=== PATIENT | female | born 1945 | race Caucasian/White ===

== ENCOUNTER 2016-08-09 08:01 | Emergency (ER) | payer MEDICARE, MEDICAID ==
[~2016-08-09] VITALS: Ht 162.5 cm; Wt 72.6 kg
[~2016-08-09 08:01] MED LIST: AMOXICILLIN500 M2 PO; AUGMENTIN 875 M1 TAB PO; AZITHROMYCIN250 MG; BACTRIM DS 8001 TA1 PO; CIPRODEX 0.3%-7.5 ML OT; CLARITIN10 MG PO; FLONASE 0.05% 121 EA NAS; LOMOCOT 0.025 M1 TAB PO; NKHM; PREDNISONE20 M1 PO; ROBITUSSIN AC 110 ML PO; ZITHROMAX Z PA250 MG PO; ZOFRAN ODT4 MG SL
[2016-08-09 09:32] LABS: BILIRUBIN 2+ (NEGATIVE); BLOOD 1+ (NEGATIVE); CLARITY CLOUDY (CLEAR); COLOR YELLOW (YELLOW); GLUCOSE NEGATIVE (NEGATIVE); KETONE 1+ (NEGATIVE); LEUKO ESTERASE NEGATIVE (NEGATIVE); NITRITE NEGATIVE (NEGATIVE); PH 5.5 (5.0-9.0); PROTEIN 1+ (NEGATIVE); SPECIFIC GRAVITY >= 1.030 (1.005-1.030)
[2016-08-09 09:36] LABS: BASO % 0.2 % (0.0-1.0); EOS % 0.1 % (1.0-4.0); HEMATOCRIT 39.2 % (37.0-47.0); HEMOGLOBIN 12.6 g/dl (12.0-16.0); LYMPH # 1.2 10*3/uL (1.3-4.4); MEAN CELL VOLUME 80.7 fl (81.0-99.0); MEAN CORPUSCULAR HGB 25.9 pg (27.0-31.0); MEAN CORPUSCULAR HGB CONC 32.1 g/dl (33.0-37.0); MEAN PLATELET VOLUME 9.5 fl (9.6-12.3); MONO # 0.8 10*3/uL (0.1-1.0); NEUT # 8.1 10*3/uL (2.3-7.9); NEUT % 79.3 % (47.0-73.0); PLATELET COUNT AUTOMATED 390 10*3/uL (130-400); RED BLOOD COUNT 4.86 10*6/uL (4.10-5.10); RED CELL DISTRI WIDTH 13.2 % (0-14.5); WHITE BLOOD COUNT 10.2 10*3/uL (4.8-10.8)
[2016-08-09 09:50] LABS: BACTERIA 3+; MUCOUS 2+; URINE REFLEX COMMENT YES (NO)
[2016-08-09 09:57] LABS: ALBUMIN 3.3 gm/dl (3.1-4.5); ALKALINE PHOSPHATASE 73 U/L (45-117); BILIRUBIN, DIRECT < 0.1 mg/dL (0.0-0.2); BILIRUBIN, TOTAL 0.4 mg/dl (0.2-1.0); BUN 14 mg/dl (7-24); CARBON DIOXIDE 25 mmol/L (21-32); CHLORIDE 105 mmol/L (98-107); EST GLOM FILT AFRICAN AMERICAN > 60 ml/min; GLUCOSE 104 mg/dL (65-99); MAGNESIUM 2.6 mg/dL (1.5-2.1); POTASSIUM 3.5 mmol/L (3.5-5.1); SGOT/AST 13 IU/L (3-35); SGPT/ALT 21 U/L (12-78); SODIUM 143 mmol/L (136-145); TOTAL PROTEIN 6.2 gm/dL (6.4-8.2)
[2016-08-09] MEDS ORDERED: REGLAN10 M1 PO (11:30)
[2016-08-23] MEDS ORDERED: LOPRESSOR25 MG PO (13:45)
== END 2016-08-09 12:05 | disposition home or self-care (01) ==
LOC: ED 08:01
PROVIDERS: Emergency Medicine
DX: R11.2 Nausea with vomiting, unspecified (principal); R10.9 Unspecified abdominal pain

== ENCOUNTER 2017-04-25 12:24 | Emergency (ER) | payer MEDICARE, MEDICAID ==
[~2017-04-25] VITALS: Ht 152.4 cm; Wt 65.8 kg
[~2017-04-25 12:24] MED LIST changes: +LOPRESSOR25 MG PO; +REGLAN10 M1 PO
[2017-04-25 13:03] LABS: BILIRUBIN NEGATIVE (NEGATIVE); BLOOD 3+ (NEGATIVE); CLARITY CLOUDY (CLEAR); COLOR RED (YELLOW); GLUCOSE NEGATIVE (NEGATIVE); KETONE NEGATIVE (NEGATIVE); NITRITE NEGATIVE (NEGATIVE); SPECIFIC GRAVITY 1.025 (1.005-1.030)
[2017-04-25 13:06] LABS: LEUKO ESTERASE TRACE (NEGATIVE)
[2017-04-25 13:09] LABS: RBC TNTC rbc/hpf (0-2)
[2017-04-25 14:03] LABS: BASO # 0.1 10*3/uL (0.0-0.1); BASO % 0.7 % (0.0-1.0); EOS # 0.2 10*3/uL (0.0-0.4); EOS % 1.6 % (1.0-4.0); HEMATOCRIT 39.6 % (37.0-47.0); HEMOGLOBIN 12.8 g/dl (12.0-16.0); LYMPH # 1.4 10*3/uL (1.3-4.4); LYMPH % 14.4 % (27.0-41.0); MEAN CELL VOLUME 86.3 fl (81.0-99.0); MEAN CORPUSCULAR HGB 27.9 pg (27.0-31.0); MEAN CORPUSCULAR HGB CONC 32.3 g/dl (33.0-37.0); MEAN PLATELET VOLUME 10.1 fl (9.6-12.3); MONO # 0.6 10*3/uL (0.1-1.0); MONO % 6.3 % (3.0-9.0); NEUT # 7.7 10*3/uL (2.3-7.9); NEUT % 76.6 % (47.0-73.0); PLATELET COUNT AUTOMATED 310 10*3/uL (130-400); RED BLOOD COUNT 4.59 10*6/uL (4.10-5.10)
[2017-04-25 14:17] LABS: ACT PARTIAL THROMBO TIME 25.8 SECONDS (20.8-31.5)
[2017-04-25 14:18] LABS: ALBUMIN 3.5 gm/dl (3.1-4.5); ALKALINE PHOSPHATASE 78 U/L (45-117); BUN 10 mg/dl (7-24); CHLORIDE 107 mmol/L (98-107); CREATININE 0.49 mg/dL (0.55-1.02); LIPASE 147 U/L (73-393); MAGNESIUM 2.5 mg/dL (1.5-2.1); POTASSIUM 4.2 mmol/L (3.5-5.1); SGOT/AST 29 IU/L (3-35); SGPT/ALT 12 U/L (12-78); SODIUM 142 mmol/L (136-145); TOTAL PROTEIN 6.6 gm/dL (6.4-8.2)
[2017-04-25 14:21] LABS: TROPONIN I < 0.015 ng/ml (<0.045)
[2017-04-25] MEDS ORDERED: CIPRO500 MG PO (15:41)
== END 2017-04-25 15:46 | disposition home or self-care (01) ==
LOC: ED 12:24
PROVIDERS: Emergency Medicine
DX: R31.9 Hematuria, unspecified (principal); I10 Essential (primary) hypertension; Z85.038 Personal history of other malignant neoplasm of large intestine

== ENCOUNTER → 2017-06-08 | Emergency (ER) | payer MEDICARE, MEDICAID ==
[~2017-06-08] VITALS: Ht 162.5 cm; Wt 61.2 kg
[~2017-06-08] MED LIST changes: +CIPRO500 MG PO
[2017-06-08 11:20] LABS: BASO # 0.1 10*3/uL (0.0-0.1); BASO % 0.5 % (0.0-1.0); EOS # 0.1 10*3/uL (0.0-0.4); EOS % 0.3 % (1.0-4.0); HEMATOCRIT 39.2 % (37.0-47.0); HEMOGLOBIN 12.6 g/dl (12.0-16.0); LYMPH # 1.1 10*3/uL (1.3-4.4); LYMPH % 5.3 % (27.0-41.0); MEAN CORPUSCULAR HGB 25.4 pg (27.0-31.0); MEAN CORPUSCULAR HGB CONC 32.1 g/dl (33.0-37.0); MEAN PLATELET VOLUME 9.9 fl (9.6-12.3); MONO # 1.3 10*3/uL (0.1-1.0); MONO % 6.1 % (3.0-9.0); NEUT # 18.2 10*3/uL (2.3-7.9); NEUT % 87.2 % (47.0-73.0); PLATELET COUNT AUTOMATED 543 10*3/uL (130-400); RED BLOOD COUNT 4.96 10*6/uL (4.10-5.10); RED CELL DISTRI WIDTH 13.4 % (0-14.5); WHITE BLOOD COUNT 20.8 10*3/uL (4.8-10.8)
[2017-06-08 11:28] LABS: ACT PARTIAL THROMBO TIME 33.8 SECONDS (20.8-31.5); INTERNATIONAL NORM RATIO 1.2 (2.0-3.5)
[2017-06-08 11:34] LABS: ALBUMIN 2.7 gm/dl (3.1-4.5); ALKALINE PHOSPHATASE 81 U/L (45-117); BUN 13 mg/dl (7-24); CHLORIDE 100 mmol/L (98-107); CREATININE 0.66 mg/dL (0.55-1.02); POTASSIUM 4.1 mmol/L (3.5-5.1); SGOT/AST 28 IU/L (3-35); SGPT/ALT 11 U/L (12-78); SODIUM 134 mmol/L (136-145); TOTAL PROTEIN 6.7 gm/dL (6.4-8.2)
[2017-06-08 12:12] LABS: BILIRUBIN 2+ (NEGATIVE); BLOOD 3+ (NEGATIVE); CLARITY CLOUDY (CLEAR); COLOR YELLOW (YELLOW); GLUCOSE NEGATIVE (NEGATIVE); KETONE TRACE (NEGATIVE); LEUKO ESTERASE 1+ (NEGATIVE); NITRITE POSITIVE (NEGATIVE); PH 5.5 (5.0-9.0); SPECIFIC GRAVITY 1.025 (1.005-1.030)
[2017-06-08 12:35] LABS: EPITHELIAL CELLS 20-30
[2017-06-08 12:36] LABS: BACTERIA 3+; YEAST TRACE
== END ==
LOC: ED 10:26
PROVIDERS: Emergency Medicine
DX: R18.0 Malignant ascites (principal); C18.9 Malignant neoplasm of colon, unspecified; C78.7 Secondary malignant neoplasm of liver and intrahepatic bile duct

== ENCOUNTER 2017-06-16 12:01 | Emergency (ER) | payer MEDICARE, MEDICAID ==
[~2017-06-16] VITALS: Ht 162.5 cm; Wt 60.8 kg
[2017-06-16 12:38] LABS: BASO # 0.1 10*3/uL (0.0-0.1); BASO % 0.5 % (0.0-1.0); EOS % 0.1 % (1.0-4.0); HEMATOCRIT 38.7 % (37.0-47.0); HEMOGLOBIN 12.3 g/dl (12.0-16.0); LYMPH # 1.1 10*3/uL (1.3-4.4); LYMPH % 5.4 % (27.0-41.0); MEAN CORPUSCULAR HGB 24.8 pg (27.0-31.0); MEAN CORPUSCULAR HGB CONC 31.8 g/dl (33.0-37.0); MEAN PLATELET VOLUME 9.4 fl (9.6-12.3); MONO # 1.3 10*3/uL (0.1-1.0); MONO % 6.8 % (3.0-9.0); NEUT % 86.7 % (47.0-73.0); PLATELET COUNT AUTOMATED 666 10*3/uL (130-400); RED BLOOD COUNT 4.96 10*6/uL (4.10-5.10); RED CELL DISTRI WIDTH 13.9 % (0-14.5); WHITE BLOOD COUNT 19.6 10*3/uL (4.8-10.8)
[2017-06-16 12:52] LABS: ALBUMIN 2.5 gm/dl (3.1-4.5); ALKALINE PHOSPHATASE 84 U/L (45-117); BUN 22 mg/dl (7-24); CHLORIDE 96 mmol/L (98-107); CREATININE 1.06 mg/dL (0.55-1.02); LIPASE 329 U/L (73-393); POTASSIUM 4.5 mmol/L (3.5-5.1); SGOT/AST 61 IU/L (3-35); SGPT/ALT 16 U/L (12-78); SODIUM 131 mmol/L (136-145); TOTAL PROTEIN 6.3 gm/dL (6.4-8.2)
[2017-06-16] MEDS ORDERED: Zofran4 MG PO (14:12)
== END 2017-06-16 14:26 | disposition home or self-care (01) ==
LOC: ED 12:01
PROVIDERS: Emergency Medicine
DX: K29.70 Gastritis, unspecified, without bleeding (principal); Z85.038 Personal history of other malignant neoplasm of large intestine

== ENCOUNTER 2017-06-18 08:45 | Inpatient (IN) | payer MEDICARE, MEDICAID ==
[~2017-06-18] VITALS: Ht 163 cm; Wt 61.0 kg
[~2017-06-18 08:45] MED LIST changes: +Zofran4 MG PO
[2017-06-18 08:53] VITALS: BP 149/94
[2017-06-18 09:25] LABS: BASO # 0.1 10*3/uL (0.0-0.1); BASO % 0.3 % (0.0-1.0); HEMATOCRIT 39.1 % (37.0-47.0); HEMOGLOBIN 12.3 g/dl (12.0-16.0); LYMPH # 0.8 10*3/uL (1.3-4.4); LYMPH % 3.5 % (27.0-41.0); MEAN CELL VOLUME 77.9 fl (81.0-99.0); MEAN CORPUSCULAR HGB 24.5 pg (27.0-31.0); MEAN CORPUSCULAR HGB CONC 31.5 g/dl (33.0-37.0); MEAN PLATELET VOLUME 9.3 fl (9.6-12.3); MONO # 1.3 10*3/uL (0.1-1.0); NEUT # 19.7 10*3/uL (2.3-7.9); NEUT % 89.5 % (47.0-73.0); PLATELET COUNT AUTOMATED 724 10*3/uL (130-400); RED BLOOD COUNT 5.02 10*6/uL (4.10-5.10); RED CELL DISTRI WIDTH 14.4 % (0-14.5)
--- NOTE | 2017-06-18 09:34 | NUR ---
DR MOSQUERA ORDERS DNR-CC FROM FULL CODE.
[2017-06-18 09:38] LABS: ALBUMIN 2.3 gm/dl (3.1-4.5); ALKALINE PHOSPHATASE 83 U/L (45-117); BUN 22 mg/dl (7-24); CHLORIDE 97 mmol/L (98-107); CREATININE 1.05 mg/dL (0.55-1.02); LIPASE 190 U/L (73-393); POTASSIUM 4.7 mmol/L (3.5-5.1); SGOT/AST 36 IU/L (3-35); SGPT/ALT 12 U/L (12-78); SODIUM 129 mmol/L (136-145); TOTAL PROTEIN 6.1 gm/dL (6.4-8.2)
--- NOTE | 2017-06-18 09:53 | NUR ---
Time: 952 A 72 year old FEMALE admitted to 5E under services of LISETTE BRAUN DO. Pt. arrived via bed from ER. Chief complaint: NAUSEA. KENNA MAST
[2017-06-18 10:17] VITALS: BP 139/78
[2017-06-18 12:00] VITALS: BP 144/78
[2017-06-18 15:14] LABS: BILIRUBIN 2+ (NEGATIVE); BLOOD TRACE-INTACT (NEGATIVE); CLARITY SL CLOUDY (CLEAR); COLOR YELLOW (YELLOW); GLUCOSE NEGATIVE (NEGATIVE); KETONE NEGATIVE (NEGATIVE); LEUKO ESTERASE TRACE (NEGATIVE); NITRITE NEGATIVE (NEGATIVE); PH 5.5 (5.0-9.0); SPECIFIC GRAVITY 1.025 (1.005-1.030); UROBILINOGEN 0.2 E.U./dl (0.2-1.0)
[2017-06-18 15:22] LABS: BACTERIA 2+; WBC 16-20 wbc/hpf (0-5)
[2017-06-18 16:00] VITALS: BP 123/71
--- NOTE | 2017-06-18 16:58 | NUR ---
Spoke with Sarah at [facility] regarding consult.
--- NOTE | 2017-06-18 17:07 | NUR ---
Medicated with morphine iv per prn order for complaints of left flank pain.
--- NOTE | 2017-06-18 18:00 | NUR ---
Pt assisted back to bed. Pt cousin at bedside.
[2017-06-18 20:00] VITALS: BP 134/83
[2017-06-19] VITALS: BP 140/86
[2017-06-19 08:00] VITALS: BP 136/89
--- NOTE | 2017-06-19 08:00 | NUR ---
HOB ELEVATED, EASY RESPIRATIONS WITH SKIN W/D. LITLE VERBAL RESPONSE OFFERED AT TIME OF ASSESSMENT. REPOSITIONED FOR COMFORT & TO RELIEVE PRESSURE AREAS. SEE SHIFT ASSESSMENT.
--- NOTE | 2017-06-19 11:31 | NUR ---
DR PHILIPPE IN TO SEE PT.
[2017-06-19 12:00] VITALS: BP 138/62; BP 149/86
--- NOTE | 2017-06-19 12:01 | NUR ---
PT LETHARGIC, DIARPHOETIC. BLOOD SUGAR 142. AFTER SEVERAL SECONDS, PT RESPONDS TO VERBAL STIMULIS. PT MOVED CLOSER TO NURSES STATION FOR CLOSER OBSERVATION. WILL INFORM
--- NOTE | 2017-06-19 12:20 | NUR ---
DR DE NOTIFIED OF CHANGE IN PTS CONDITION, NO NEW ORDERS.
--- NOTE | 2017-06-19 13:55 | NUR ---
RESTING WITH FAMILY AT BEDSIDE. ASSISTED TO BR, PT IS WEAK & UNSTEADY.
--- NOTE | 2017-06-19 13:59 | NUR ---
N[facility]SE FROM [facility] HERE TO SEE PT & DISCUSS PLAN OF CARE WITH FAMILY.
[2017-06-19 16:00] VITALS: BP 141/85
--- NOTE | 2017-06-19 16:14 | NUR ---
DR DE AWARE OF NEED FOR INPATIENT HOSPICE CARE ORDER & INFORMED OF LIST OF RECOMMENDATIONS FROM HOSPICE. ALSO INFORMED THAT FAMILY WOULD LIKE TO SPEAK TO HIM OR DR PHILIPPE.
--- NOTE | 2017-06-19 16:41 | NUR ---
MEDICATED IV SLOWLY ORDERED PER FAMILY REQUEST WITH MORPHINE FOR C/O PERCIEVED BACK PAIN. PT IS UNABLE TO RATE PAIN LEVEL. DR RABAGO IN TO SPEAK WITH FAMILY. SEE EMAR.
--- NOTE | 2017-06-19 17:14 | NUR ---
MEDICAATION EFFECTIVE, PT SLEEPING WITH EASY RESPIRATIONS. BEDALARM FOR PT SAFETY.
== END 2017-06-19 17:30 | disposition hospice, home (50) | DRG 374 ==
LOC: ED 08:45 → EDHOLD 09:30 → 5E 09:43
PROVIDERS: Emergency Medicine; ADMIT Internal Medicine
DX: C78.6 Secondary malignant neoplasm of retroperitoneum and peritoneum (principal); E43 Unspecified severe protein-calorie malnutrition; R18.0 Malignant ascites; N13.30 Unspecified hydronephrosis; C78.7 Secondary malignant neoplasm of liver and intrahepatic bile duct; E87.8 Other disorders of electrolyte and fluid balance, not elsewhere classified; R82.71 Bacteriuria; E87.1 Hypo-osmolality and hyponatremia; E83.41 Hypermagnesemia; Z66 Do not resuscitate; Z51.5 Encounter for palliative care; H91.90 Unspecified hearing loss, unspecified ear; F79 Unspecified intellectual disabilities; D72.829 Elevated white blood cell count, unspecified; D72.810 Lymphocytopenia; D72.818 Other decreased white blood cell count; D72.821 Monocytosis (symptomatic); D47.3 Essential (hemorrhagic) thrombocythemia; R73.9 Hyperglycemia, unspecified; Z90.49 Acquired absence of other specified parts of digestive tract; Z85.038 Personal history of other malignant neoplasm of large intestine; Z68.22 Body mass index [BMI] 22.0-22.9, adult

== ENCOUNTER 2017-06-19 17:43 | Inpatient (IN) | payer OTHER, MEDICARE ==
[~2017-06-19] VITALS: Ht 162.6 cm; Wt 60.8 kg
--- NOTE | 2017-06-19 18:00 | NUR ---
PT ADMITTED UND[facility]. SLEEPING AT PRESENT TIME WITH NO S/S DISTRESS NOTED. BEDALARM FOR PT SAFETY.
[2017-06-19 20:00] VITALS: BP 135/84
--- NOTE | 2017-06-19 20:22 | NUR ---
PATIENT ASLEEP IN BED AT THIS TIME. RESPIRATIONS EASY. NO S/S OF DISTRESS NOTED. ON ROOM AIR. WILL MONITOR. CALL LIGHT LEFT IN REACH.
--- NOTE | 2017-06-19 22:05 | NUR ---
PRN PO MORPHINE ADMINISTERED PER PRN ORDER FOR C/O GENERALIZED PAIN. PATIENT POINTS TO STOMACH AND NODS YES WHEN OFFERED PAIN MEDICATION. ALSO C/O THIRST. PATIENT OFFERED WARM WATER PER HER REQUEST. WILL MONITOR EFFECTIVENESS. SCHEDULED PO ATIVAN ALSO ADMINISTERED. WILL MONITOR EFFECTIVNESS. CALL LIGHT LEFT IN REACH.
--- NOTE | 2017-06-19 22:55 | NUR ---
LEEROY FROM [facility] CALLED AT THIS TIME FOR AN UPDATE ON PATIENT. DISCUSSED RECENT PAIN/ANXIETY MEDICATION ADMINISTERED AT 2201. STATES THAT IF CURRENT MEDICATIONS APPEAR INEFFECTIVE TO CALL HER AT [phone] AND SHE WILL CALL THEIR DOCTORS FOR MEDICATION CHANGES.
[2017-06-20] VITALS: BP 132/80
--- NOTE | 2017-06-20 07:02 | NUR ---
ATTEMPTED TO CALL ROOSEVELT CHACON, PATIENT'S POA, ABOUT CONSENT FOR TODAY'S SCHEDULED PARACENTESIS. NO ANSWER. WILL TRY AGAIN.
--- NOTE | 2017-06-20 07:30 | NUR ---
PRN MORPHINE AND ATIVAN GIVEN FOR RESTLESSNESS AND BACK PAIN. PATIENT UNABLE TO VERBALIZE A NUMBERS RATING SCALE, BUT APPEARS DISTRESSED AND IS POINTING TO HER BACK.
[2017-06-20 08:00] VITALS: BP 130/72
--- NOTE | 2017-06-20 08:30 | NUR ---
PRN ATIVAN AND MORPHINE APPEAR EFFECTIVE, PT IS RESTING COMFORTABLY.
--- NOTE | 2017-06-20 13:52 | NUR ---
PRN MORPHINE GIVEN FOR PATIENT REPORT BACK PAIN. PT IS UNABLE TO GIVE NUMBER RATING BUT IS POINTING TO HER BACK.
--- NOTE | 2017-06-20 14:20 | NUR ---
PT TRANSPORTED OFF FLOOR FOR PARACENTESIS.
--- NOTE | 2017-06-20 15:20 | NUR ---
PT RETURNED TO FLOOR FROM HAVING PARACENTESIS.
--- NOTE | 2017-06-20 15:20 | NUR ---
PT RETURNED FROM PROCEDURE AND APPEARS QUITE SEDATED. VITAL SIGNS ARE WNL BUT O2 HAS DROPPED TO 92% ON ROOM AIR. 2 LITERS O2 APPLIED NURSING MEASURE. PT SATS 96 % ON 2 LITERS, HR 104, BP 127/78 AND RESP 18 AND EASY.
[2017-06-20 16:00] VITALS: BP 133/77
[2017-06-20 19:52] VITALS: BP 119/70
--- NOTE | 2017-06-20 19:53 | NUR ---
PATIENT ASLEEP IN BED AT THIS TIME. AROUSABLE, BUT VERY DROWSY. PATIENT DENIES ANY NEED FOR PAIN MEDICATION. WATER OFFERED AT THIS TIME. PATIENT REFUSING. WILL MONITOR PATIENT. VITALS ARE STABLE. O2 AT 2L NC FOR COMFORT. POX 96%. BED LEFT LOCKED IN LOW POSITION. BED ALARM INTACT. CALL LIGHT WITHIN REACH.
[2017-06-21] VITALS: BP 117/81
[2017-06-21 02:20] VITALS: BP 136/81
--- NOTE | 2017-06-21 02:21 | NUR ---
PATIENT MEDICATED WITH PO ATIVAN AND PO MORPHINE PER PRN ORDER FOR RESTLESSNESS AND C/O NONSPECIFIC PAIN. PATIENT NODS HEAD WHEN OFFERED PAIN MEDICINE AT THIS TIME. WILL MONITOR EFFECTIVENESS. CALL LIGHT IN REACH, BED LOCKED IN LOW POSITION, BED ALARM INTACT.
--- NOTE | 2017-06-21 07:30 | NUR ---
PT SLEEPING EASILY AWAKEN A&OX3 OXANA, VERY PLEASANT, SMILING, EASLIY DIRECTED, VS STABLE. PT RESP: CHANGE TREJO BREATHING AND MOUTH BREATHING O2 2L N/C. HEAR CRACKELS IN LEFT UPPER LOBE OTHERWISE CLEAR AND DIMISHED THROUGHOUT. SKIN IS INTACTED BUT IS RED AROUND LOWER ABDOMENAL CREASE. APPLIED SILICONE CREAM AFTER BATH. SKIN ON FEET ARE VERY DRY, APPLIED LOTION AFTER BATH. ABD SOFT NON-DISTENDED,NON-TENDER. INCIDENT RESPONSE ANALYST WAS IN TO SEE PT. APPLIED CLARITA HOSE AND NON SKID SLIPPERS PT HAS NO C/O PAIN AT THIS TIME CONTIUNE TO ASSESS JEFFERY CALL SPN
[2017-06-21 08:00] VITALS: BP 112/60
--- NOTE | 2017-06-21 09:30 | NUR ---
PT A&OX3 VERY PLEASNT, SMILING. PT ONLY TOOK A FEW BITES OF BREAKFAST, DOES NOT WANT TO EAT, SHE ONLY WANTS TO DRINK WATER. NO C/O PAIN AT THIS TIME CONTUINE TO ASSESS JEFFERY SEPULVEDA
[2017-06-21 12:00] VITALS: BP 138/82
--- NOTE | 2017-06-21 13:30 | NUR ---
PT A&0X3 VERY PLEASANT LOTS OF SMILES FAMILY IN TO VISIT. HOSPICE NURSE WAS IN TO CHECK OVER PT AND TALK WITH FAMILY. MEAUSERED ABDOMENAL GIRTH 67CM PT C/O NO PAIN AT THIS TIME CONTUINE TO ASSESS JEFFERY CALL SPMayank
--- NOTE | 2017-06-21 14:02 | NUR ---
LEONEL Monet RN ROUNDED AND I DISCUSSED WITH HER FAMILY CONCERNS OF SEDATION. EXPLAINED PT IS LETHARGIC. EXPLAINED PT DID NOT BECOME ORIENTED UNTIL AROUND 1300. [facility] OFFERED RECCOMMENDATIONS FOR CHANGING PT MEDS. NOTIFIED AMBER KENNY CNP. AND ORDERS RECIEVED.
--- NOTE | 2017-06-21 14:42 | NUR ---
MORPHINE GIVEN PER PRN MAR FOR C/O BACK PAIN,04/03.
--- NOTE | 2017-06-21 15:02 | NUR ---
ORDERS RECIEVED FOR ATIVAN 0.5MG PO/PRN Q6HRS,HOLD FOR SEDATION.SCHEDULED ATIVAN 0.5 MG PO BID. MS IR PO (ORAL/LIQUID CONCENTRATE) 5 MG PO, HOLD FOR SEDATION. SPOKE TO RAYSHAWN IN PHARMACY, HE MEDS THESE CHANGES I WAS HAVING DIFFICULTY WITH MAKIN NECCASARY CHANGES PER AMBER KENNY'S ORDERS AND PER RECCOMMENDATIONS OF [facility]. AMBER WILL EVALUAte PT IN AM TO SEE IF THIS WASN'T WORKING FOR HER TO MANAGE HER PAIN.
[2017-06-21 16:00] VITALS: BP 133/75
--- NOTE | 2017-06-21 17:06 | NUR ---
Patient resting quietly with no c/o discomfort. Respirations easy and regular. Vital signs stable. No overt distress.CALL LIGHT IN REACH. BEBETO WRIGHT
[2017-06-21 20:00] VITALS: BP 124/72
--- NOTE | 2017-06-21 21:45 | NUR ---
PATIENT MEDICATED WITH PO MORPHINE PER PRN ORDER FOR GENERALIZED PAIN. PATIENT RESTLESS AND NODS HEAD YES WHEN OFFERED PAIN MEDICINE. WATER ALSO AND SCHEDULED PO ATIVAN ALSO GIVEN TO PATIENT AT THIS TIME. WILL MONITOR EFFECTIVENESS. CALL LIGHT LEFT IN REACH, BED ALARM INTACT.
--- NOTE | 2017-06-21 22:34 | NUR ---
EARLIER MEDICATION APPEARS EFFECTIVE. PATIENT RESTING IN BED. NO APPARENT S/S OF PAIN/DISTRESS NOTED. WILL MONITOR.
[2017-06-22] VITALS: BP 126/72
--- NOTE | 2017-06-22 00:24 | NUR ---
PATIENT ASLEEP IN BED AT THIS TIME, AROUSES TO TACTILE/VERBAL STIMULATION. NO S/S OF DISTRESS NOTED. POX 92% ON ROOM AIR, HUMIDIFIED O2 APPLIED AT 2L NC FOR COMFORT. WILL MONITOR. BED ALARM INTACT.
--- NOTE | 2017-06-22 02:48 | NUR ---
PATIENT APPEARING RESTLESS AT THIS TIME. OFFERED PAIN MEDICATION, PATIENT SHAKES HER HEAD NO. OFFERED WATER AND PO ATIVAN, PATIENT NODS IN AGREEANCE. PATIENT MEDICATED WITH PO ATIVAN PER PRN ORDER. WILL MONITOR EFFECTIVENESS. BED LEFT LOCKED IN LOW POSITION, BED ALARM INTACT, CALL LIGHT IN REACH.
--- NOTE | 2017-06-22 05:45 | NUR ---
SPOKE TO HI FROM [facility] REGARDING PATIENT'S PLANS UPON DISCHARGE. PER HI, THE SOCIAL SCIENCE INSTRUCTOR FROM [facility] IS WORKING ON GETTING A BED FOR PATIENT AT THE [facility]. STATES THAT HISTORY AND PHYSICAL HAS BEEN SENT AND THEY ARE WAITING TO HEAR BACK.
--- NOTE | 2017-06-22 07:30 | NUR ---
TOOK PT'S IV OUT NO BLEEDING PT TOLERATED IT WELL JEFFERY CALL SPN
--- NOTE | 2017-06-22 07:30 | NUR ---
PT SLEEPING EASILY AWAKEN VS STABLE. PUPILS ARE UNEQUAL RIGHT IS NON-RESPONSIVE TO LIGHT- LEFT EYE IS SLOW TO RESPONED TO LIGHT. ADB GIRTH MEASURED AT 69CM, ABD DISTENED AND FIRM. BSX4, NO COMPLAINTS OF PAIN OR TENDERNESS IN ABD. RESP LABORED, CHANGE TREJO BREATHING, MOUTH BREATHING. LUNGS CLEAR AND DIMISHED THROUGHOUT. NO C/O OR SOB OR CHEST PAIN SKIN TURGOR GOOD, SKIN COOL DRY TO TOUCH. PT HAS REDNESS UNDERNEATH ABD FOLD. ALSO RED SCRACTHES ON BOTH BUTTOCKS. CRAYON PAINTER ARE EQUAL PT IS VERY PLEASANT AND EASILY DIRECTED NO C/O PAIN AT THIS TIME CONTINUE TO ASSESS JEFFERY CALL SPN
--- NOTE | 2017-06-22 07:30 | NUR ---
PT'S URINE IS VERY DARK AND HAS STRONG ODER TO IT. WHILE BATHING PT CLEANED YELLOW DISCHARGE FROM HER VIGINA. PT DID NOT TOLORATE WELL WHILE CLEANING. A BLEEDING HEMMROID FROM RECTUM. JEFFERY SEPULVEDA
[2017-06-22 08:00] VITALS: BP 116/70
--- NOTE | 2017-06-22 08:00 | NUR ---
ASSUMED CARE OF PATIENT. PATIENT IS RESTING IN HER BED. C/O SLIGHT BACK DISCOMFORT. PATIENT IS ALERT. ANSWERS QUESTIONS WITH YES/NO ANSWERS.
--- NOTE | 2017-06-22 10:30 | NUR ---
PT IS A&O X3 PLESANT BUT COMPLAINING OF LOWER BACK PAIN. HOSPICE NURSE AND EPIC RADIANT ANALYST WERE ALSO THERE TO CHECK ON PT. EPIC RADIANT ANALYST SAID TO GIVE HER THE MORPHINE FOR PAIN. HOSPICE NURSE AND EPIC RADIANT ANALYST WERE SUGGESTING CHANGING HER PAIN MED ORDER. I ALSO ADDRESSED THE HOSPICE NURSE ABOUT THE REDNESS AROUND HER ADB CREASE AND THE SCRATCHES ON HER BUTTOCKS, TO HAVE SOME KIND OF BARRIER CREAM ORDER TO PROTECT HER SKIN. SHE WAS GOING TO CALL THE DOCTOR TO GET AN ODER. GAVE PT 5MG OF MORPHINE PO JEFFERY CALL COCO
--- NOTE | 2017-06-22 11:00 | NUR ---
PT AWAKE A&O X 3 VERY PLEASANT, SMILING, PT IS NOT COMPLAINING OF PAIN ANY LONGER. PAIN MED EFFECTIVE JEFFERY CALL SPN
[2017-06-22 12:00] VITALS: BP 130/74
[2017-06-22 16:00] VITALS: BP 125/81
[2017-06-22 20:00] VITALS: BP 130/73
--- NOTE | 2017-06-22 20:49 | NUR ---
IN ROOM TO ASSESS PATIENT. PATIENT RESPONDS WITH MOVEMENT OF HEAD IN DIRECTION OF VOICE BUT HAS NO VERBAL RESPONSE. AIRWAY IS PATENT. BREATHING IS PRESENT WITH EASY AND UNLABORED RESPIRATIONS AT THE RATE OF 14. DIMINISHED RESPIARATORY EFFORT WITH VERY DIMINISHED LUNG SOUNDS BILATERALLY. ABDOMEN IS DISTENDED FIRM WITH HYPOACTIVE BS X 4. EXTREMITIES ARE COOL DRY AND MILD GENERALIZED EDEMA. PATIENT ADJUSTED FOR COMFORT AND MEDICATED WITH PO COMFORT MEDS AT THIS TIME.
[2017-06-23] VITALS: BP 106/63
[2017-06-23 08:00] VITALS: BP 90/56
--- NOTE | 2017-06-23 08:00 | NUR ---
PT RESTING IM BED. PUPILS UNRESPONSIVE TO LIGHT 1MM. UNRESPONSIVE TO VERBAL OR PAINFUL STIMULI. ABD IS DISTENDED GIRTH 77CM BSX4 FIRM. LUNG SOUNDS DECREASED THROUGH OUT PO2 92% ON 2L N/C SWITCHED TO MASK 8L O2 DUE TO MOUTH BREATHING. PO2 96%. SKIN TURGOR POOR IS PALE WARM TO TOUCH TOUNGE RUTTED AND DRY. PT IS RESTFUL AT THIS TIME. REDNESS NOTED ABD CREASE AND BOTH BUTTOCKS INTACTED NO OTHER WOUNDS NOTED. MOUTH CARE GIVEN. WILL CONTUINE TO ASSESS. JEFFERY CALL SPN
--- NOTE | 2017-06-23 08:43 | NUR ---
ASSUMED CARE OF PATIENT. PATIENT IS LYING IN BED PROPPED BY THE WEDGE ONTO HER RIGHT SIDE. SHE IS LABORED BREATHING WITH APPROXIMATELY 10 BREATHS PER MINUTE. APPLIED SIMPLE MASK DUE TO MOUTH BREATHING AND O2SATS DROPPING TO 92% ON THE 2LNC. PATIENT'S O2 SATS INCREASED TO 95%. PATIENT IS UNRESPONSIVE TO VERBAL CUES, DOES NOT ANSWER QUESTIONS. WILL CONTINUE TO MONITOR PATIENT. STUDENT IS HERE WORKING WITH PATIENT TODAY WELL.
[2017-06-23 10:00] VITALS: BP 90/50
--- NOTE | 2017-06-23 10:00 | NUR ---
PT REMAINS UNRESPONSIVE. MOUTH BREATHING GURGLING. PO2 83% ON 8L CHANGED TO VENTI MASK 50% ON 15L PO2 90%. MORPHINE 5MG SUSPENSION GIVEN SL FOR GURGLING AND COMFORT. REPOSITIONED YAN BANG RN NOTIFIED AND CAME TO ASSESS PT. I WILL CONTUINE TO ASSESS PT. JEFFERY CALL SPN
--- NOTE | 2017-06-23 10:10 | NUR ---
PT RECEIVED MORPHINE TO HELP EASE PAIN.
--- NOTE | 2017-06-23 10:22 | NUR ---
CALLED PATIENT'S FAMILY TO LET THEM KNOW THE PATIENT'S CHANGE IN STABILITY. PLACED THE PATIENT ON 50% VENTURI MASK TO HELP EASE RESPIRATIONS AND INCREASE O2 TO 85% FROM 77%. ALSO READJUSTED PATIENT IN BED TO A MORE UPRIGHT POSITION TO INCREASE OXYGENATION.
--- NOTE | 2017-06-23 10:59 | NUR ---
patient receiving ativan to help ease her as her status and stability changes.
--- NOTE | 2017-06-23 11:00 | NUR ---
PT'S FAMILY IS AT BEDSIDE WITH PT- I OFFERED COMFORT AND ANYTHING THAT I COULD DO FOR THEM. WILL CONTIUNE TO OFFER COMFORT AND NEEDS. ALSO CONTUINE TO ASSESS PT JEFFERY CALL SPN
[2017-06-23 12:00] VITALS: BP 88/48
--- NOTE | 2017-06-23 12:10 | NUR ---
PT RESTING COMFORTABLE HOB ELEVATED. HOSPICE NURSE INTO ASSESS PT. PTS PO2 IS ALL OVER THE PLACE 68-99%.PT IS MOTTLING ON LOWER EXTREMITIES ABOVE KNEES TO HIPS. PTS TOES AND FINGERS ARE VERY COLD STARTING TO GET CYNOTIC. PT STILL HAS NOT HAD ANY URINE OUTPUT TODAY. WILL CONTUINE TO PALMER GIL CALL SPN
--- NOTE | 2017-06-23 13:08 | NUR ---
PATIENT WAS CONFIRMED BY TWO NURSES, MAXIMILIANO ROPER, JT, AND YAN BANG RN AT 1303. CALLED DOCTOR LUIS AND DOCTOR RODRIGUEZ TO REPORT THE PATIENT'S PASSING AT 1306. DOCTOR RODRIGUEZ STATES THAT HE WILL SIGN THE CERTIFICATE. CALLED THE MANAGER PROGRESSIVE CARE TO REPORT AT 1308. CALLED ONE [facility] AT 1314 TO REPORT .
--- NOTE | 2017-06-23 13:32 | NUR ---
NOTIFIED HOSPICE COMPANY, [facility], OF PATIENT'S PASSING AT 1334. SPOKE WITH
--- NOTE | 2017-06-23 13:48 | NUR ---
FAMILY INFORMED ON QUALIFICATION TO DONATE CORNEAS. FAMILY (ROOSEVELT) DID NOT WANT TO DONATE CORNEAS. ALL BELONGINS GIVEN TO FAMILY (JACKET, CAPRIS AND SHIRT). AWAITING HOME. FRACISCO WALKER RN
--- NOTE | 2017-06-23 14:00 | NUR ---
SPOKE WITH [facility] AND REQUEST THAT SALINE BE PLACED IN EYES, EYES PLACED ON EYES AND PATIENT SAT UP- SEND TO [facility] UNTIL THEY RELEASE PATIENT. MADISON NUÑEZ RN NOTIFIED. FRACISCO WALKER RN
--- NOTE | 2017-06-23 15:39 | NUR ---
PT'S REMAINS HAVE BEEN TAKEN FROM THE FLOOR TO THE MORTUARY.
--- NOTE | 2017-06-23 21:47 | NUR ---
A CALL WAS PLACED TO [facility] AT THIS TIME. PER PAINT SPRAY INSPECTOR FROM [facility], THIS PATIENT IS RELAESED AND HAS BEEN SINCE 4:40 PM TODAY. CASE #[id number] . SUPER VISOR NOTIFIED, [facility] AWARE FOR HEAD OF SALES AND MARKETING AND SECURITY NOTIFIED AT THIS TIME.
== END 2017-06-23 13:03 | disposition expired | DRG 374 ==
LOC: 5E 17:43
PROVIDERS: ADMIT Internal Medicine
PROC: 0W9G3ZZ Drainage of Peritoneal Cavity, Percutaneous Approach (ICD-10-PCS; principal; 2017-06-20)
DX: C78.5 Secondary malignant neoplasm of large intestine and rectum (principal); E43 Unspecified severe protein-calorie malnutrition; R18.0 Malignant ascites; E87.1 Hypo-osmolality and hyponatremia; Z51.5 Encounter for palliative care; Z66 Do not resuscitate; D72.829 Elevated white blood cell count, unspecified; F79 Unspecified intellectual disabilities; D47.3 Essential (hemorrhagic) thrombocythemia; H91.90 Unspecified hearing loss, unspecified ear; Z68.22 Body mass index [BMI] 22.0-22.9, adult